=== PATIENT | female | born 1945 | race Two or more races ===

== ENCOUNTER 2017-04-17 11:17 | Outpatient (CLI) | payer OTHER ==
[~2017-04-17] VITALS: Ht 152.4 cm; Wt 75.3 kg
[~2017-04-17 11:17] MED LIST: LEVAQUIN500 MG PO; NORFLEX100 MG; SIMVASTATIN20 MG; SYNTHROID125 MCG; ZIAC 2.5-6.25 M1 TAB
== END 2017-04-17 11:40 | disposition home or self-care (01) ==
LOC: OFIC 805 11:17
DX: H61.21 Impacted cerumen, right ear (principal)

== ENCOUNTER 2018-10-26 06:30 | Day surgery (SDC) | payer OTHER | END 2018-10-26 10:55 | disposition home or self-care (01) | LOC: AMB-ENDOS 06:30 | DX: K57.32 Diverticulitis of large intestine without perforation or abscess without bleeding (principal); K64.1 Second degree hemorrhoids ==